=== PATIENT | female | born 1955 | race Two or more races ===

== ENCOUNTER → 2020-05-13 | Outpatient (CLI) | payer BC, OTHER ==
--- NOTE | 2020-05-14 13:18 | RADIOLOGY REPORT (SQ) ---
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 RADIONUCLIDE AND DOSE: 11.1 mCi F18 FDG The route of agent administration: Intravenous FASTING BLOOD SUGAR: 105 mg/dl CONTRAST TYPE AND DOSE: No CT contrast given. TECHNIQUE: Blood glucose level was verified. Above dose of FDG was injected intravenously. 2-D seg mented attenuation correction images were obtained from the base of the skull to the midthighs. Nonc ontrast CT images were obtained for attenuation correction and fusion with emission images. CT image s were performed without oral or intravenous contrast and are not sensitive for parenchymal lesions. A series of overlapping emission PET images were obtained. Images reviewed and manipulated at [facility] work station by the radiologist. Images stored on PACS. LIMITATIONS: None. FINDINGS: HEAD AND NECK: No areas of abnormal soft tissue metabolic activity in the soft tissues of the head and neck. CHEST: Multiple metabolically active mediastinal lymph nodes are present as follows: Left supraclavicular 9 x 8 mm axial image 48, SUV of 5 Anterior mediastinum prevascular 1.3 x 1 cm node axial image 60, SUV 7 Prevascular 1.5 x 1 cm lymph node axial image 64, SUV of 9 AP window 1.6 x 1.4 cm node axial image 68, SUV 11 Bilateral hilar subcentimeter nodes, SUV 6 to 7 The distal bronchus intermedius, proximal lower lobe segmental bronchi are occluded by right lower lo be perihilar consolidation 4 x 3 cm in size axial image 88, with SUV of 9.5. Underlying lung mass ma y be present. There is postobstructive volume loss in the right lower lobe. Small right pleural effusion without metabolic activity along the pleura ABDOMEN AND PELVIS: Metabolically active retroperitoneal adenopathy is present as follows: 4 x 2 cm conglomerate mass of adenopathy at the celiac level, axial image 120, SUV 16 Multiple retroperitoneal aortocaval and periaortic lymph nodes, SUV 11 to 12 PROXIMAL LOWER EXTREMITIES: No areas of abnormal metabolic activity in the soft tissues of the lower extremities. BONES: Extensive skeletal metastatic activity throughout the entire spine, bilateral humeri, ribs, jasmeet ny pelvis, bilateral proximal femurs. Bone lesions ranging in the SUV from 13 to [address] FINDINGS: No additional significant findings on the noncontrast CT images. OTHER: Blood pool activity 1.4 SUV liver activity 1.9 SUV. IMPRESSION: Extensive metabolically active bony metastatic lesions Intraabdominal pelvic metabolically active enlarged lymph nodes Occluded right lower lobe airways with ill-defined metabolically active right hilar mass and postobst ructive pneumonia. TECHNICAL DOCUMENTATION: JOB ID: [id number] 2010 [employer]- All Rights Reserved Reading location - IP/workstation name: [id number]
== END ==
LOC: RAD 10:28 → EDBD 11:00
PROVIDERS: ATTEND Internal Medicine
DX: C50.412 Malignant neoplasm of upper-outer quadrant of left female breast (principal); C79.51 Secondary malignant neoplasm of bone; R59.0 Localized enlarged lymph nodes; J18.9 Pneumonia, unspecified organism
CPT/HCPCS: 78815; A9552

== ENCOUNTER 2020-05-21 05:59 | Day surgery (SDC) | payer BC, OTHER ==
[2020-05-21 06:41] LABS: HEMATOCRIT 36.9 % (36.0-47.0); HEMOGLOBIN 12.7 g/dL (12.0-15.5); MEAN CORPUSCULAR HEMOGLOBIN 31.2 pg (27.0-33.4); MEAN CORPUSCULAR HGB CONC 34.3 g/dL (32.0-36.0); MEAN CORPUSCULAR VOLUME 91 fl (80-97); PLATELET COUNT 209 10^3/uL (150-450); RED BLOOD COUNT 4.06 10^6/uL (3.72-5.28); RED CELL DISTRIBUTION WIDTH 13.5 % (11.5-14.0); WHITE BLOOD COUNT 6.1 10^3/uL (4.0-10.5)
[2020-05-21 07:00] LABS: BLOOD UREA NITROGEN 12 mg/dL (7-20); GLUCOSE 144 mg/dL (75-110)
[2020-05-21 07:07] LABS: INTERNATIONAL RATION (INR) 1.02; PROTHROMBIN TIME 13.4 SEC (11.4-15.4)
[2020-05-21 07:08] LABS: PARTIAL THROMBOPLASTIN TIME 34.7 SEC (23.5-35.8)
[2020-05-21] MEDS ORDERED: FENTANYL CITRATE INJ/PF 100 MCG/2 ML AMPUL ONE (08:05)
[2020-05-21] MEDS ORDERED: MIDAZOLAM 2 MG/2 ML INJ ONE (08:05)
--- NOTE | 2020-05-21 10:22 | RADIOLOGY REPORT (SQ) ---
EXAM DESCRIPTION: CT NEEDLE PLACEMENT IMAGES COMPLETED DATE/TIME: 05/21/2020 9:17 am REASON FOR STUDY: Intraabdominal pelvic metabolically active enlarged lymph nodes C50.511 MALIG GREGORIO PLM OF LOWER-OUTER QUADRANT OF RIGHT FEMALE COMPARISON: None. TECHNIQUE: CT guided biopsy of the left retroperitoneal lymph node performed with conscious sedation . CT Fluoroscopy Time: 10.[address] scanners at this facility use dose modulation, iterative reconstruction, and/or weight based d osing when appropriate to reduce radiation dose to as low as reasonably achievable (ALARA). [facility]: Dose Right [facility]: CareDose [facility]: Dose Right [facility]: Teradose 4D [facility]: [employer] RADIATION DOSE: mGy. FINDINGS: After obtaining informed consent and explaining the risks and benefits of conscious sedati on,the patient agreed to the procedure. Prior to the procedure, a time out was performed to verify th e patient's identity and planned procedure. IV sedation was administered and physician direction by the registered nurse using 1 milligrams of Ve rsed and 50 micrograms of fentanyl, for conscious sedation. Physiologic monitoring was provided befor e, during, and after sedation. The total sedation time was 30 minutes. Documentation face to face time, the performing proceduralist, spent monitoring the patient: [address] scanning was performed to localize the percutaneous site for the biopsy approach. After sterile skin prep and local lidocaine for skin and deep tissue anesthesia, an 18 gauge Temno co axial biopsy needle was positioned at the left retroperitoneal lymph node. The biopsy needle was dep loyed and imaging obtained demonstrating needle biopsy trough across the lesion of interest. The bio psy tissue was submitted to the lab in formalin. There were no immediate complications. Pathology is pending at the time of dictation. IMPRESSION: CT GUIDED BIOPSY OF THE LEFT RETROPERITONEAL LYMPH NODE PERFORMED WITHOUT IMMEDIATE COMP LICATION. PATHOLOGY PENDING. COMMENT: Quality ID 145: Final reports for procedures using fluoroscopy that document radiation exp osure indices, or exposure time and number of fluorographic images (if radiation exposure indices are not available) Patient medication list reviewed: Yes- Quality ID# 130:Eligible professional attests to documenting i n the medical record they obtained, updated, or reviewed the patient's current medications.. TECHNICAL DOCUMENTATION: JOB ID: [id number] Quality ID# 436: Final reports with documentation of one or more dose reduction techniques (e.g., Aut omated exposure control, adjustment of the mA and/or kV according to patient size, use of iterative r econstruction technique) 2010 [employer]- All Rights Reserved Reading location - IP/workstation name: [email or web address]
[2020-05-21 11:23] VITALS: BP 133/72
--- NOTE | 2020-05-21 11:44 | RADIOLOGY REPORT (SQ) ---
EXAM DESCRIPTION: CT BIOPSY SUPERFIC LYMPH NODE COMPLETE DATE/TIME: 05/21/2020 9:16 am REASON FOR STUDY: Intraabdominal pelvic metabolically active enlarged lymph nodes C50.511 MALIG GREGORIO PLM OF LOWER-OUTER QUADRANT OF RIGHT FEMALE FINDINGS: Please see combined report for performance of procedure and radiologic supervision. IMPRESSION: Please see combined report for performance of procedure and radiologic supervision. Reading location - IP/workstation name: [email or web address]
== END 2020-05-21 11:20 | disposition home or self-care (01) ==
LOC: RAD 05:59
PROVIDERS: ATTEND Internal Medicine
DX: C50.412 Malignant neoplasm of upper-outer quadrant of left female breast (principal); J45.909 Unspecified asthma, uncomplicated; I10 Essential (primary) hypertension; E11.9 Type 2 diabetes mellitus without complications
CPT/HCPCS: 36415; 84520; 82565; 82947; 85027; 85610; 85730; 88305 ×2; 77012; 38505; J2250; J3010; 88341; 88342

== ENCOUNTER → 2020-10-07 | Outpatient (CLI) | payer MEDICARE, OTHER ==
--- NOTE | 2020-10-07 13:21 | RADIOLOGY REPORT (SQ) ---
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 Images reviewed with lung, soft tissue and bone windows. Reconstructed coronal and sagittal MPR and MIP images reviewed. All images stored on PACS. All CT scanners at this facility use dose modulation, iterative reconstruction, and/or weight based d osing when appropriate to reduce radiation dose to as low as reasonably achievable (ALARA). [facility]: Dose Right [facility]: CareDose [facility]: Dose Right [facility]: Teradose 4D [facility]: [employer] RENAL FUNCTION: GFR > 60. RADIATION DOSE: CT Rad equipment meets quality standard of care and radiation dose reduction techniq ues were employed. CTDIvol: 4.4 - 4.5 mGy. DLP: 582 mGy-cm. . LIMITATIONS: None. FINDINGS: LUNGS AND PLEURA: Small right pleural effusion and subsegmental consolidation right lower lobe not significantly changed. No developing nodules. Left lung is clear. HILAR AND MEDIASTINAL STRUCTURES: Stable 12 mm right hilar node. HEART AND VASCULAR STRUCTURES: No aneurysm or dissection. No central pulmonary emboli. No pericardi al effusion. HARDWARE: None in the chest. UPPER ABDOMEN: See separate report of the CT of the abdomen. THYROID AND OTHER SOFT TISSUES: Left axillary node dissection. BONES: Known sclerotic metastasis. No pathologic fracture. OTHER: No other significant finding. IMPRESSION: 1. Stable small right pleural effusion and postobstructive atelectasis or pneumonia right lower lobe. 2. Stable known bone metastasis. TECHNICAL DOCUMENTATION: JOB ID: [id number] Quality ID # 436: Final reports with documentation of one or more dose reduction techniques (e.g., Au tomated exposure control, adjustment of the mA and/or kV according to patient size, use of iterative reconstruction technique) 2010 [employer]- All Rights Reserved Reading location - IP/workstation name: [email or web address]
--- NOTE | 2020-10-07 13:32 | RADIOLOGY REPORT (SQ) ---
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 No oral contrast. Images reviewed with lung, soft tissue, and bone windows. Reconstructed coronal and sagittal MPR images reviewed. Delayed images for evaluation of the urinary system also acquired. All images stored on PACS. All CT scanners at this facility use dose modulation, iterative reconstruction, and/or weight based d osing when appropriate to reduce radiation dose to as low as reasonably achievable (ALARA). [facility]: Dose Right [facility]: CareDose [facility]: Dose Right [facility]: Teradose 4D [facility]: [employer] CONTRAST TYPE AND DOSE: contrast/concentration: Isovue 350.00 mmol/ml; Total Contrast Delivered: 80. 0 ml; Total Saline Delivered: 39.9 ml RENAL FUNCTION: GFR > 60. RADIATION DOSE: . LIMITATIONS: None. FINDINGS: LOWER CHEST: See separate report of the CT of the chest. LIVER: Normal size. No masses. No dilated ducts. SPLEEN: Normal size. No focal lesions. PANCREAS: No masses. No significant calcifications. No adjacent inflammation or peripancreatic fluid collections. Pancreatic duct not dilated. GALLBLADDER: No identified stones by CT criteria. No inflammatory changes to suggest cholecystitis. ADRENAL GLANDS: No significant masses or asymmetry. RIGHT KIDNEY AND URETER: No solid masses. No significant calcifications. No hydronephrosis or hyd roureter. LEFT KIDNEY AND URETER: No solid masses. No significant calcifications. Mild hydronephrosis. AORTA AND VESSELS: No aneurysm. No dissection. Renal arteries, SMA, celiac without stenosis. RETROPERITONEUM: No retroperitoneal adenopathy, hemorrhage or masses. BOWEL AND PERITONEAL CAVITY: No masses or inflammatory changes. No free fluid or peritoneal masses. APPENDIX: Not visualized. PELVIS: No mass. No free fluid. Normal bladder. ABDOMINAL WALL: No masses. No hernias. BONES: Unchanged diffuse skeletal metastasis. OTHER: No other significant finding. IMPRESSION: 1. Mild left hydronephrosis of uncertain etiology. 2. Resolved adenopathy. 3. Stable skeletal metastasis. TECHNICAL DOCUMENTATION: JOB ID: [id number] Quality ID # 436: Final reports with documentation of one or more dose reduction techniques (e.g., Au tomated exposure control, adjustment of the mA and/or kV according to patient size, use of iterative reconstruction technique) 2010 [employer]- All Rights Reserved Reading location - IP/workstation name: [email or web address]
--- NOTE | 2020-10-07 14:02 | RADIOLOGY REPORT (SQ) ---
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 RADIONUCLIDE AND DOSE: 20 millicuries Tc99m MDP. The route of agent administration: Intravenous. ADDITIONAL DRUGS AND DOSES: None. TECHNIQUE: Routine delayed images at 3 hours post radionuclide injection acquired of the bony skelet on including anterior and posterior whole-body projections and additional focused images as needed. LIMITATIONS: None. FINDINGS: BONES: Multiple areas of abnormal uptake are present in the calvarium, spine, multiple rib s, right humerus, pelvis, right femur and left femur KIDNEYS: Symmetric excretion without obstruction. OTHER: No other significant finding. IMPRESSION: There is extensive metastatic disease to bone. COMMENT: Quality measure 147: Current bone scan is compared with any available plain radiographs, p rior bone scans, and CT/MRI. TECHNICAL DOCUMENTATION: JOB ID: [id number] 2010 [email or web address]- All Rights Reserved Reading location - IP/workstation name: [email or web address]
== END ==
LOC: RAD 09:02
PROVIDERS: ATTEND Physician Assistant Medical
DX: C50.412 Malignant neoplasm of upper-outer quadrant of left female breast (principal); C79.51 Secondary malignant neoplasm of bone
CPT/HCPCS: 82565; 78306; 71260; 74177; A9503; Q9969